=== PATIENT | male | born 1960 | race Caucasian/White ===

== ENCOUNTER → 2022-01-28 | Day surgery (SDC) | payer OTHER ==
[~2022-01-28] VITALS: Ht 180.3 cm; Wt 108.1 kg
[~2022-01-28] MED LIST: CLARITIN10 MG PO; DAILY VALUE1 EACH PO; HYDROCHLOROTH12.5 MG PO; LOVAZA1 GM PO; SIMVASTATIN20 MG PO
[2022-01-28 08:39] LABS: HCT 47.2 % (42.0-52.0); HGB 16.5 g/dl (13.2-18.0); MCH 32.5 pg (25.0-31.0); MCV 92.9 fL (78.0-100.0); MPV 9.9 fL (6.0-9.5); RBC 5.08 M/uL (4.70-6.00); RDW 11.9 % (11.5-14.0); WBC 6.4 K/uL (4.0-10.5)
[2022-01-28 08:50] LABS: ALBUMIN 4.1 g/dL (3.4-5.0); BILIRUBIN - TOTAL 1.3 mg/dL (0.2-1.0); BUN/CREAT RATIO (CALC) 12.9 RATIO; CREATININE 1.16 mg/dL (0.67-1.17); GLOBULIN (CALCULATION) 3.4 g/dL; POTASSIUM 3.7 mmol/L (3.5-5.1); TOTAL PROTEIN 7.5 g/dL (6.4-8.2)
== END | disposition home or self-care (01) ==
LOC: FAS 07:28
PROVIDERS: Surgery
DX: Z12.11 Encounter for screening for malignant neoplasm of colon (principal); K57.30 Diverticulosis of large intestine without perforation or abscess without bleeding; Z86.010 Personal history of colon polyps; I10 Essential (primary) hypertension; K21.9 Gastro-esophageal reflux disease without esophagitis; E78.5 Hyperlipidemia, unspecified; Z87.891 Personal history of nicotine dependence
CPT/HCPCS: 36415; 80053; J2250; J2704; J7120